=== PATIENT | female | born 1960 | race Caucasian/White ===

== ENCOUNTER → 2019-05-01 | Outpatient (CLI) | payer OTHER ==
[~2019-05-01] MED LIST: ACYCLOVIR 400400 MG PO; BAYER BACK & B1 EACH PO; CELEBREX 200 M200 M1 PO; COLACE100 MG PO; ESCITALOPRAM OX20 MG PO; EVISTA PO; EVISTA60 MG PO; FLEXERIL PO; HTN MED; HYZAAR 100-251 EACH PO; LISINOPRIL10 MG PO; NORCO 5-325 TA1 EACH PO; OXYCODONE HCL 55 MG PO; PERCOCET PO; PREDNISONE 10 M10 MG PO; PREDNISONE 20 M20 M1 PO; RALOXIFENE HCL60 MG PO; TRAMADOL 50 MG50 MG PO; XARELTO10 MG PO
== END ==
LOC: M.RAD 11:04
DX: Z12.31 Encounter for screening mammogram for malignant neoplasm of breast (principal)

== ENCOUNTER → 2019-12-26 | Outpatient (CLI) | payer OTHER | LOC: M.ULTRA 12-24 16:03 | PROVIDERS: ATTEND Specialist | DX: R94.5 Abnormal results of liver function studies (principal); R10.9 Unspecified abdominal pain; Z90.49 Acquired absence of other specified parts of digestive tract; Z90.710 Acquired absence of both cervix and uterus ==